=== PATIENT | male | born 1955 | race Hispanic/Latino ===

== ENCOUNTER → 2017-12-06 | Day surgery (SDC) | payer OTHER ==
[~2017-12-06] MED LIST: ALDACTONE50 MG PO; ANTARA130 MG PO; ASPIR 8181 MG PO; ATORVASTATIN PO; BENAZEPRIL HCL10 MG PO; CRESTOR20 MG PO; FENTANYL CITRATE/PF 100MCG/2 ML INJ ONE; FLOMAX0.4 MG PO; FUROSEMIDE40 MG PO; GABAPENTIN300 MG PO; GLUCOVANCE 5-51 EACH PO; GLYBURIDE-METF1 EAC1; ISOSORBIDE MONO30 MG PO; JANUVIA100 MG PO; JARDIANCE PO; KLOR-CON 1010 MEQ PO; LIDOCAINE HCL 2% LOCAL INJ 5 ML SDV VIAL INJ ONE; MELOXICAM7.5 MG PO; MIDAZOLAM HCL 2 MG/2 ML VIAL ONE; NEXIUM40 MG PO; POTASSIUM CHLO10 ME1 PO; PROPOFOL IV EMULSION 10 MG/ML 50 ML VIAL ONE; TAMSULOSIN HCL0.4 MG PO; VASOTEC5 M1 PO; VASOTEC5 MG PO; VIAGRA100 MG PO
== END | disposition home or self-care (01) ==
LOC: OR 12:06
PROVIDERS: ATTEND Internal Medicine Gastroenterology
DX: Z12.11 Encounter for screening for malignant neoplasm of colon (principal); D12.3 Benign neoplasm of transverse colon; K57.30 Diverticulosis of large intestine without perforation or abscess without bleeding; K64.8 Other hemorrhoids; K59.09 Other constipation; R12 Heartburn; E11.9 Type 2 diabetes mellitus without complications; I10 Essential (primary) hypertension; I45.10 Unspecified right bundle-branch block; E78.5 Hyperlipidemia, unspecified; Z01.810 Encounter for preprocedural cardiovascular examination; Z79.82 Long term (current) use of aspirin
CPT/HCPCS: 36415; 45385; 82948; 93005; J2001; J2250

== ENCOUNTER → 2019-03-09 | Day surgery (SDC) | payer OTHER ==
[2019-03-08 12:16] LABS: BASOPHILS # (AUTO) 0.1 (0.0-0.1); BASOPHILS % 0.6 % (0.0-1.0); EOSINOPHILS # (AUTO) 0.2 (0.0-0.4); EOSINOPHILS % 2.7 % (0.0-6.0); HEMATOCRIT 47.7 % (38.2-49.6); HEMOGLOBIN 16.1 g/dL (14.0-18.0); LYMPHOCYTES # (AUTO) 1.3 (1.0-3.2); LYMPHOCYTES % 15.3 % (18.0-39.1); MEAN CORPUSCULAR HEMOGLOBIN 28.7 pg (28-32); MEAN CORPUSCULAR HGB CONC 33.8 g/dL (31-35); MONOCYTES # (AUTO) 0.7 (0.2-0.8); MONOCYTES % 8.4 % (4.4-11.3); NEUTROPHILS # (AUTO) 6.2 (2.1-6.9); NEUTROPHILS % 72.1 % (38.7-80.0); PLATELET COUNT 210 x10e3/uL (140-360); RED BLOOD COUNT 5.61 x10e6/uL (4.3-5.7); RED CELL DISTRIBUTION WIDTH 12.9 % (11.7-14.4)
[2019-03-08 12:29] LABS: INR 0.91; PROTHROMBIN TIME 12.7 seconds (11.9-14.5)
[2019-03-08 12:37] LABS: ALANINE AMINOTRANSFERASE 21 IU/L (0-55); ALBUMIN 4.2 g/dL (3.5-5.0); ALBUMIN/GLOBULIN RATIO 1.4 (0.8-2.0); ALKALINE PHOSPHATASE 72 IU/L (40-150); ANION GAP 12.5 mmol/L (8-16); BLOOD UREA NITROGEN 19 mg/dL (7-26); BUN/CREATININE RATIO 21 (6-25); CALCIUM 10.4 mg/dL (8.4-10.2); CARBON DIOXIDE 28 mmol/L (22-29); CHLORIDE 99 mmol/L (98-107); CREATININE, SERUM 0.91 mg/dL (0.72-1.25); EST GLOMERULAR FILTRATION RATE > 60 ML/MIN (60-); GLUCOSE 104 mg/dL (74-118); POTASSIUM 4.5 mmol/L (3.5-5.1); SODIUM 135 mmol/L (136-145)
[2019-03-09] VITALS (14 sets, daily range): BP systolic 90–128; BP diastolic 46–86
[~2019-03-09] VITALS: Ht 172.7 cm; Wt 93.0 kg
[~2019-03-09] MED LIST changes: +ALPRAZOLAM 0.5 MG TAB ONE; +ASPIRIN 325 MG TAB ONE; +DIPHENHYDRAMINE HCL 25 MG CAP ONE; +EPTIFIBATIDE 10 ML ONE; -GLYBURIDE-METF1 EAC1; +GLYBURIDE-METF1 EAC1 PO; +HEPARIN SOD/SOD CHLORIDE 2,000 ML ONE; +INVOKANA PO; +IOPAMIDOL 370 MG/ML 200 ML INFUS..BTL INJ ONE; +LIDOCAINE HCL 2% LOCAL 20 ML VIAL ONE; -LIDOCAINE HCL 2% LOCAL INJ 5 ML SDV VIAL INJ ONE; -PROPOFOL IV EMULSION 10 MG/ML 50 ML VIAL ONE; +SODIUM CHLORIDE 0.9% 1000ML 1,000 ML ONE; +TICAGRELOR 90 MG TABLET ONE
--- NOTE | 2019-03-09 20:30 | NUR ---
2029 Received handoff report from Yael ROMERO Tr band titration(12cc)As reported had ooze and on hold for 30 minutes.Pt hand stent LAD.Fix by Dr Llamas.Back to baseline orientation. Resp shallow and regular. at bedside. Abdomen soft and non tender. Bilateral femoral pulse present Review pedal pulses present.Reviewed dc planning aware of importance f/o care. Has copies dc papers.Iv infusing well No s/s infiltration. 2044p continued tr band titration.-2cc No gross signs pain pallor,pressure or dysrhythmia. adequate radial pulse. 2099p continued tr band titration -2cc No gross signs pain,pallor,pressure or dysrhythmia. adequate radial pulse. 2129p continued tr band titration -2cc No gross signs pain,pallor,pressure or dysrhythmia. adequate radial pulse. 220p completed tr band titration -2cc No gross signs pain,pallor,pressure or dysrhythmia. adequate radial pulse. 2214 site with sterile 2x2 Tegaderm and Coban arm splint in placed reviewed discharged papers. No gross signs pain,pallor or pressure issues. Iv removed no s/s infiltration Coban dressing applied. -2230 Escorted to car with family and RN escort per w/c.No c/o CP or SOB No gross issues pain pallor pressure or dysrhythmia aware of importance of followup care and home care of site. ds/rn
--- NOTE | 2019-03-09 22:00 | NUR ---
2200 Tr band titration completed No gross signs pain ,pallor,pressure,dysrhythmia. DC instructions given with adequate understanding and has copies in hand rt wist with sterile 2x2 and Tegaderm and Coban dressing.Wrist splint in place Assist with dressing Tolerating po intake. Iv removed no s/s infiltration. Coban 2x2 dressing. Escorted to car per w/c with [facility] RN. No c/o Cp or sob. 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 ds/rn
--- NOTE | 2019-03-09 23:15 | Operative Report ---
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 INDICATIONS: Coronary artery disease, abnormal stress test with apical ischemia. PROCEDURES PERFORMED: 1. Left heart catheterization, selective coronary angiography, left ventriculography. 2. Stent placed in the mid left anterior descending artery. 3. Deployment of right wrist TR band. COMPLICATIONS: None. RECOMMENDATIONS: Dual antiplatelet therapy for at least 6 months. DESCRIPTION OF PROCEDURE: Access was obtained in the right radial artery, using ultrasound guidance, a 5-Lao sheath was placed, 10,000 units of intravenous heparin was administered for anticoagulation along with Integrilin bolus and oral Brilinta and aspirin. Coronary angiography demonstrated mild coronary artery disease in all vessels except mid left anterior descending artery, 70% stenosis, LV ejection fraction 60%, LV end-diastolic pressure of 10. No gradient across aortic valve on pullback. A decision was made to intervene on the left anterior descending artery. The patient's left main was cannulated using an EBU 3.75 5-Lao guiding catheter. A short wire was advanced across the lesion for support, primary stent 2.75 x 12 mm synergy at 14 atmospheres. Excellent end result, less than 10% residual stenosis. No complications. SHIRA-3 flow. Right wrist wire guide sheath removed. Patient observed in the hospital for 4 hours and subsequently discharged home same day. Shar Llamas MD KSB/MODL /[id number]
== END | disposition home or self-care (01) ==
LOC: CATH LAB 13:38
PROVIDERS: ATTEND Internal Medicine Interventional Cardiology
DX: I25.118 Atherosclerotic heart disease of native coronary artery with other forms of angina pectoris (principal); Z01.812 Encounter for preprocedural laboratory examination; E11.9 Type 2 diabetes mellitus without complications; Z83.3 Family history of diabetes mellitus; I10 Essential (primary) hypertension; G47.33 Obstructive sleep apnea (adult) (pediatric); E78.5 Hyperlipidemia, unspecified; Z79.84 Long term (current) use of oral hypoglycemic drugs
CPT/HCPCS: 36415 ×2; 80053; 82948; 85025; 85610; 92928; 93458; C1725; C1769 ×2; C1887; J1327; J2001; J2250; J7030; Q9967